=== PATIENT | female | born 1960 | race Caucasian/White ===

== ENCOUNTER 2021-02-18 17:13 | Emergency (ER) | payer BC, SELFPAY ==
--- NOTE | ~2021-02-18 | XR_ITS ---
EXAMINATION: XR foot RT min 3V DATE: 02/18/2021 17:31 INDICATION: Right foot injury and pain. TECHNIQUE: 4 views of right foot were obtained. COMPARISON: None. FINDINGS: Bone alignment is normal. No fracture. There is mild osteoarthritis of some of the interpha langeal joints. IMPRESSION: 1. Mild polyarticular osteoarthritis. Reviewed, dictated and finalized at location A.
--- NOTE | 2021-02-18 17:17 | ED.GENADULT ---
HPI - General Adult General Chief complaint: Extremity Injury, Lower Stated complaint: rt foot inj Time Seen by Provider: 02/18/21 17:17 Source: patient Mode of arrival: ambulatory Limitations: no limitations History of Present Illness HPI narrative: 60-year-old female patient presents to the [facility] with complaints of right foot pain since 2 AM this morning. Patient states about 2 AM she was walking out to her car and she was wearing wedges, patient states that she kind of rolled her right foot and heard some cracking. Patient states that she has not been able to bear much weight on it this morning. Denies taking any Tylenol or ibuprofen. Denies icing it states she has only elevated it. Patient states she mostly has pain along the toes and the lateral side of the right foot. Denies any ankle pain. Denies any numbness or tingling to the toes. Related Data Home Medications Medication Instructions Recorded Confirmed alprazolam 0.25 mg PO DIRECTED 02/18/21 02/18/21 atorvastatin 40 mg PO DAILY 02/18/21 02/18/21 duloxetine 60 mg PO DAILY 02/18/21 02/18/21 Allergies Allergy/AdvReac Type Severity Reaction Status Date / Time No Known Allergies Allergy Verified 02/18/21 17:24 Review of Systems Review of Systems: Narrative: CONSTITUTIONAL: Denies fever, chills, or sweats. EYES: Denies visual changes, redness, or discharge. ENT: Denies rhinorrhea, congestion, sore throat, or otalgia. CARDIOVASCULAR: Denies chest pain, palpitations, or edema. RESPIRATORY: Denies cough or dyspnea. GASTROINTESTINAL: Denies abdominal pain, nausea, vomiting, or diarrhea. GENITOURINARY: Denies dysuria or hematuria. SKIN: Denies rash or itching. MUSCULOSKELETAL: Denies back pain, joint pain, or myalgia. Positive right foot pain NEUROLOGIC: Denies headache, numbness, or weakness. PSYCHIATRIC: Denies anxiety or depression. [facility] Past Medical History Medical History (Updated 02/18/21 @ 17:44 by TAYLOR Hassan) Anxiety Depression Hypercholesteremia Social History Social History Gender identity (if verbalized by the patient): Female Comments At the time of my signature I agree with nursing past medical history, surgical, social, and family history. There is no relevant family history pertinent to the presenting complaint. Exam Narrative: Exam Narrative: GENERAL: Well-appearing, well-nourished, and in no acute distress. HEAD: Normocephalic, atraumatic. EYES: PERRLA and EOMI. ENT: Nares clear, no rhinorrhea or epistaxis. Mucous membranes moist. NECK: Supple. No lymphadenopathy CHEST: Clear to auscultation. No respiratory distress. HEART: Regular rate and rhythm. No murmur heard. Normal peripheral pulses. ABDOMEN: Soft, nontender, nondistended, normal active bowel sounds. EXTREMITIES: Patient unable to bear weight and ambulate on right foot. No obvious surface trauma, ecchymosis, erythema, lesions, ulcers or break in skin integrity. The R foot is without obvious asymmetry or deformity when compared to the L foot. No bony step-off, tender to palpation over the base of the toes, no pain over the midfoot or hindfoot or sole. Tenderness on palpation to the lateral side of the right foot. Normal plantar/dorsiflexion, inversion/eversion. Distal motor and neurovascular status are intact SKIN: Warm, dry, no rash. NEURO: No focal deficits. Alert and oriented x3. Course Reevaluation(s) Reevaluation #1: Reevaluated patient after x-ray resulted. Notified her that her x-ray is negative for any acute fracture or obvious injury. Discussed with her this is most likely a sprain. Discussed with patient we will go ahead and wrap her with an Andrea wrap today for her for some crutches to help her get around. Discussed with patient she needs to keep it elevated, ice it may take Tylenol or ibuprofen as needed for pain. Patient verbalized understanding of this denies any other questions or concerns at this ivet
[2021-02-18 17:20] VITALS: BP 165/83; PULSE 82; RESP 16; TEMP 36.3; O2SAT 98
[2021-02-18] MEDS: ACETAMINOPHEN 500 MG TABLET 1000 MG PO (17:38)
== END 2021-02-18 17:47 | disposition home or self-care (01) ==
PROVIDERS: Emergency Provider Nurse Practitioner Family
DX: S93.601A Unspecified sprain of right foot, initial encounter (principal); X50.9XXA Other and unspecified overexertion or strenuous movements or postures, initial encounter; X50.0XXA Overexertion from strenuous movement or load, initial encounter; E78.00 Pure hypercholesterolemia, unspecified; F41.9 Anxiety disorder, unspecified
CPT/HCPCS: 73630; 99203; A9270; G0463